=== PATIENT | female | born 1960 | race Caucasian/White ===

== ENCOUNTER 2019-09-22 08:16 | Outpatient (CLI) | payer OTHER, SELFPAY ==
--- NOTE | ~2019-09-22 | MM_ITS ---
EXAMINATION: MM screening [facility] BI w [facility] HISTORY: Screening TECHNIQUE: Craniocaudal and mediolateral oblique 3-D tomosynthesis images were obtained and synthetic 2-D images were generated. CAD analysis was submitted and interpreted. COMPARISON: Comparison to multiple prior studies sequentially, with oldest reviewed study dated 06/26. BREAST PARENCHYMAL COMPOSITION: The breasts are heterogeneously dense, which may obscure small masses . FINDINGS: There is no evidence of suspicious mass, calcification, or architectural distortion to sugg est malignancy in either breast. There has been no suspicious interval change. IMPRESSION: 1. No mammographic evidence of malignancy. 2. Recommend routine screening mammography in one year. BI-RADS Category 1: Negative Reviewed, dictated and finalized at location A.
== END 2019-09-22 08:17 | disposition home or self-care (01) ==
PROVIDERS: PCP Family Medicine; Visit Provider Family Medicine
DX: Z12.31 Encounter for screening mammogram for malignant neoplasm of breast (principal)
CPT/HCPCS: 77063; 77067

== ENCOUNTER → 2020-05-27 16:11 | Emergency (ER) | payer OTHER, SELFPAY | END | disposition left against medical advice (07) | LOC: EXPGLEN 16:14 | PROVIDERS: Emergency Provider Nurse Practitioner Family; PCP Family Medicine | DX: Z53.21 Procedure and treatment not carried out due to patient leaving prior to being seen by health care provider (principal) | CPT/HCPCS: 99199 ==

== ENCOUNTER 2020-05-27 16:37 | Emergency (ER) | payer OTHER, SELFPAY ==
[2020-05-27] VITALS (7 sets, daily range): BP systolic 134–145; BP diastolic 71–78; PULSE 69–87; RESP 14–18; TEMP 37; O2SAT 97–100
--- NOTE | ~2020-05-27 | XR_ITS ---
XR chest 1V portable DATE: 05/27/2020 19:22 INDICATION: Cough. Covid-positive. TECHNIQUE: Portable upright AP chest on 05/27/2020 at 1911 hours COMPARISON: 02/28/2007 portable AP chest FINDINGS: There is asymmetric prominence over the right hilar area; right hilar or mediastinal mass i s not excluded. Consider CT thorax examination with IV contrast material when clinically appropriate. Mild patchy infiltrate or atelectasis is suggested in the mid and to a greater extent lower lung zone s. No pleural effusion or pulmonary vascular congestion or pneumothorax is evident. Heart size is likely within normal range considering magnification associated with AP projection. IMPRESSION: Asymmetric prominence overlying the right hilar area; consider CT thorax with IV contrast material for further evaluation. Mild patchy infiltrate or atelectasis in the mid and to a greater extent lower lung zones Reviewed, dictated and finalized at location A. IMPRESSION: Asymmetric prominence overlying the right hilar area; consider CT t horax with IV contrast material for further evaluation. Mild patchy infiltrate or atelectasis in the mid and to a greater extent lower lung zones
--- NOTE | ~2020-05-27 | CT_ITS ---
EXAMINATION: CTA chest PE protocol DATE: 05/27/2020 22:28 INDICATION: Shortness of breath, chest pain TECHNIQUE: Computed tomography angiography (CTA) of the chest was performed with 100 mL Omnipaque-350 intravenous contrast timed to evaluate the pulmonary arteries. Coronal maximum intensity projection 3D-reconstructions were created by the technologist. Automated exposure control and iterative reconst ruction technique were employed. Exam dose: 296.79 mGy-cm total exam DLP. COMPARISON: None. FINDINGS: There is diagnostic contrast enhancement of the pulmonary arteries and no evidence of pulmo nary embolism. Mild cardiac megaly. No pericardial or pleural effusion. There is mild bilateral hilar and mediastinal likely reactive lymphadenopathy. There is patchy groundglass infiltrates involving the anterior segment of the left upper lobe, anteri or and to a greater extent lateral aspect of the right upper lobe and patchy lingular and right great er than left lower lobe infiltrates. Status post cholecystectomy. Hepatic steatosis. Normal morphology of the adrenal glands. Diffuse idiopathic skeletal hyperostosis of the thoracic spine. 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 No suspicious osteolytic or osteoblastic lesions are noted. IMPRESSION: Patchy bilateral upper and lower lobe pulmonary infiltrates and mild reactive bilateral hilar or mediastinal lymphadenopathy No evidence of pulmonary embolism Reviewed, dictated and finalized at Location A. Reviewed, dictated and finalized at location A. IMPRESSION: Patchy bilateral upper and lower lobe pulmonary infiltrates and mi ld reactive bilateral hilar or mediastinal lymphadenopathy No evidence of pulmonary embolism
--- NOTE | 2020-05-27 17:09 | ECG_ITS ---
Measurements Intervals [place] Rate: 77 P: 54 VA: 156 QRS: -22 QRSD: 98 T: 29 QT: 366 QTc: 414 Interpretive Statements SINUS RHYTHM BORDERLINE R WAVE PROGRESSION, ANTERIOR LEADS BASELINE ARTIFACT- V5 BORDERLINE ECG Electronically Signed On 05-27-2020 17:32:31 CDT by Luis Kelley D.O.
--- NOTE | 2020-05-27 18:41 | PC.NURSE ---
sitting upright with normal posture; respirations and skin signs wnl. No acute distress.
[2020-05-27] MEDS: KETOROLAC 30 MG/ML VIAL (*BKC) IV PUSH (20:09)
[2020-05-27] MEDS: ALBUTEROL SULFATE (*SP) INHALER 2 PUFF INHALATION (20:09)
[2020-05-27] MEDS: BENZONATATE 100 MG CAPSULE 200 MG PO (20:27)
[2020-05-27 20:32] LABS: Hematocrit 40.4 % (37.0-47.0); Hemoglobin 13.5 g/dL (12.0-15.0); Mean Corpuscular HGB Conc 33.4 g/dl (32-36); Mean Corpuscular Hemoglobin 29.7 pg (26-34); Mean Platelet Volume 10.1 fl (7.4-10.4); Platelet Count Result 254 k/mm3 (150-375); Red Blood Count 4.54 M/mm3 (4.2-5.4); Red Cell Distribution Width 11.9 % (11.5-14.5); White Blood Count 4.6 K/mm3 (4.5-10.0)
[2020-05-27 20:39] LABS: Lactic Acid Reflex 0.8 mmol/L (0.7-2.1)
[2020-05-27 20:44] LABS: Alanine Aminotransferase 66 U/L (4-35); Albumin Level 4.7 g/dL (3.5-5.1); Alkaline Phosphatase 93 U/L (38-126); Anion Gap 8 mmol/L (8-16); Aspartate Amino Transferase 47 U/L (14-36); Bilirubin,Total 0.5 mg/dL (0.2-1.3); Blood Urea Nitrogen 23 mg/dL (7-17); Calcium 9.1 mg/dL (8.4-10.2); Carbon Dioxide 29 mmol/L (22-30); Chloride 103 mmol/L (98-107); Estimated CRCL calculation 85 ml/min; Estimated Glomerular Filt Rate > 60; Glucose 102 mg/dL (65-105); Potassium 4.1 mmol/L (3.4-5.0); Sodium 140 mmol/L (137-145)
[2020-05-27 20:54] LABS: Eosinophils Absolute Manual 0.04 K/mm3 (0.02-0.5); Eosinophils Percent Manual 1 % (0-4); Monocytes Absolute Manual 0.18 K/mm3 (0.1-0.90); Monocytes Percent Manual 4 % (3-9); Neutrophils Percent Manual 47 % (46-73); Total Cells Counted 100
[2020-05-27 20:55] LABS: Platelet Estimate Adequate (Adequate)
[2020-05-27 20:57] LABS: Troponin I < 0.012 ng/mL (0.000-0.034)
--- NOTE | 2020-05-27 21:47 | PC.NURSE ---
Spoke to on phone and gave update per pts permission.
--- NOTE | 2020-05-27 23:46 | ED.GENADULT ---
HPI - General Adult General Chief complaint: Unspecified Stated complaint: covid + Time Seen by Provider: 05/27/20 19:16 History of Present Illness HPI narrative: Patient is a 59-year-old female who presents to emergency department with chief complaint of cough. Patient reports that she has COVID-19 that she contracted right after getting her first Covid vaccine. Patient states that she has been coughing having generalized malaise and body aches. Patient states that she talk to her primary care physician who recommended that she come to the emergency department for a chest x-ray to evaluate for possible Covid pneumonia. Patient reports symptoms are not improved by anything where they worsened by anything. Related Data Allergies Allergy/AdvReac Type Severity Reaction Status Date / Time No Known Allergies Allergy Verified 03/11/20 13:45 Review of Systems Review of Systems: Narrative: A 10 system review of systems was completed on the patient and is negative except for what is stated in the HPI. Nursing and ancillary documentation was reviewed. PMF Family History Family History Sibling Family history of hepatitis Family history of lymphoma Father Hypertension Cerebrovascular accident Family history of Alzheimer's disease Mother Hypertension Family history of Alzheimer's disease Social History Social History Smoking status: Never smoker Exam Narrative: Exam Narrative: GENERAL: Well-appearing, well-nourished, and in no acute distress. HEAD: Normocephalic, atraumatic. EYES: PERRLA and EOMI. ENT: Nares clear, no rhinorrhea or epistaxis. Mucous membranes moist. NECK: Supple. CHEST: Clear to auscultation. No respiratory distress. HEART: Regular rate and rhythm. No murmur heard. Normal peripheral pulses. ABDOMEN: Soft, nontender, nondistended, normal active bowel sounds. EXTREMITIES: Normal range of motion. No edema. SKIN: Warm, dry, no rash. NEURO: No focal deficits. Alert and oriented x3. PSYCH: Normal mood and affect. Course Vital Signs Vital signs: Vital Signs Temperature 37.0 C 05/27/20 17:04 Pulse Rate 79 05/27/20 17:04 Respiratory Rate 16 05/27/20 17:04 Blood Pressure 145/75 H 05/27/20 17:04 Pulse Oximetry 100 05/27/20 17:04 Temperature 37.0 C 05/27/20 17:04 Pulse Rate 81 05/27/20 22:48 Respiratory Rate 17 05/27/20 22:48 Blood Pressure 144/71 H 05/27/20 22:48 Pulse Oximetry 97 05/27/20 22:48 Medical Decision Making Vital Signs Vital Signs: Vital Signs Temperature 37.0 C 05/27/20 17:04 Pulse Rate 79 05/27/20 17:04 Respiratory Rate 16 05/27/20 17:04 Blood Pressure 145/75 H 05/27/20 17:04 Pulse Oximetry 100 05/27/20 17:04 Temperature 37.0 C 05/27/20 17:04 Pulse Rate 81 05/27/20 22:48 Respiratory Rate 17 05/27/20 22:48 Blood Pressure 144/71 H 05/27/20 22:48 Pulse Oximetry 97 05/27/20 22:48 Lab Data Result diagrams: 05/27/20 20:09 05/27/20 20:09 Labs: Lab Results 05/27/20 05/27/20 05/27/20 Range/Units 20:09 20:09 20:09 WBC 4.6 (4.5-10.0) K/mm3 RBC 4.54 (4.2-5.4) M/mm3 Hgb 13.5 (12.0-15.0) g/dL Hct 40.4 (37.0-47.0) % MCV 89.0 (80-100) fl MCH 29.7 (26-34) pg MCHC 33.4 (32-36) g/dl RDW 11.9 (11.5-14.5) % Plt Count 254 (150-375) k/mm3 MPV 10.1 (7.4-10.4) fl Immature Gran % (Auto) Not Reportable Neut % (Auto) Not Reportable Lymph % (Auto) Not Reportable [place] % (Auto) Not Reportable Eos % (Auto) Not Reportable Baso % (Auto) Not Reportable Lymph # (Auto) Not Reportable [place] # (Auto) Not Reportable Eos # (Auto) Not Reportable Baso # (Auto) Not Reportable Abs Immat Gran (auto) Not Reportable Absolute Neuts (auto) Not Reportable Absolute Nucleated R
== END 2020-05-28 | disposition home or self-care (01) ==
PROVIDERS: Emergency Provider Emergency Medicine; PCP Family Medicine
DX: U07.1 COVID-19 (principal); J12.82 Pneumonia due to coronavirus disease 2019; R94.31 Abnormal electrocardiogram [ECG] [EKG]
CPT/HCPCS: 36415; 71045; 71275; 80053; 83605; 84484; 85025; 93005; 94640; 96374; 99284; A9270; J1885; Q9967

== ENCOUNTER 2020-09-13 13:35 | Outpatient (CLI) | payer OTHER, SELFPAY ==
--- NOTE | ~2020-09-13 | XR_ITS ---
EXAMINATION: XR abdomen/kub 1V DATE: 09/13/2020 14:07 INDICATION: Left flank pain. TECHNIQUE: A supine view of the abdomen on 2 radiographs was obtained. COMPARISON: CT abdomen and pelvis 05/31/2016 FINDINGS: There are no dilated loops of bowel. Surgical clips in the right upper quadrant are likely from cholecystectomy. There are two 2 mm stones in left kidney. There is a phlebolith in right pelvis . There is a 2 mm calcification in left pelvis. IMPRESSION: 1. 2 mm calcification in left pelvis, which may be a phlebolith or distal ureteral stone. 2. Two 2 mm left kidney stones. Reviewed, dictated and finalized at location A. IMPRESSION: 1. 2 mm calcification in left pelvis, which may be a phlebolith or distal urete ral stone. 2. Two 2 mm left kidney stones.
== END 2020-09-13 13:36 | disposition home or self-care (01) ==
PROVIDERS: PCP Family Medicine; Visit Provider Family Medicine
DX: R10.9 Unspecified abdominal pain (principal); N20.0 Calculus of kidney
CPT/HCPCS: 74018

== ENCOUNTER 2021-04-27 13:29 | Outpatient (CLI) | payer OTHER, SELFPAY ==
--- NOTE | ~2021-04-27 | MM_ITS ---
EXAMINATION: MM screening [facility] BI w [facility] HISTORY: Screening mammogram TECHNIQUE: Craniocaudal and mediolateral oblique 3-D tomosynthesis images were obtained and synthetic 2-D images were generated. CAD analysis was submitted and interpreted. COMPARISON: 09/22/2019, 07/24/2018, 07/16/2017 BREAST PARENCHYMAL COMPOSITION: There are scattered areas of fibroglandular density. FINDINGS: There is no suspicious mass, calcification, or architectural distortion to suggest malignan cy in either breast. There has been no suspicious interval change. IMPRESSION: 1. No mammographic evidence of malignancy. 2. Recommend routine screening mammography in one year. BI-RADS Category 1: Negative Reviewed, dictated and finalized at location A.
== END 2021-04-27 13:30 | disposition home or self-care (01) ==
LOC: ANHIMG 13:31
PROVIDERS: PCP Family Medicine; Visit Provider Family Medicine
DX: Z12.31 Encounter for screening mammogram for malignant neoplasm of breast (principal)
CPT/HCPCS: 77063; 77067

== ENCOUNTER → 2022-01-31 10:16 | Outpatient (CLI) | payer OTHER, SELFPAY ==
--- NOTE | ~2022-01-31 | XR_ITS ---
EXAMINATION: XR chest 2V DATE: 01/31/2022 10:39 INDICATION: Cough for 6 weeks. TECHNIQUE: Frontal and lateral views of the chest were obtained. COMPARISON: Chest single view 05/27/2020, chest CT 05/27/2020 FINDINGS: The chest demonstrates clear lungs without pneumonia, pleural effusion, or pneumothorax. Th e heart size is normal. IMPRESSION: 1. No acute cardiopulmonary disease. Reviewed, dictated and finalized at location A. LINE ENGINEER
== END ==
PROVIDERS: PCP Nurse Practitioner; Visit Provider Nurse Practitioner
DX: R05.9 Cough, unspecified (principal)
CPT/HCPCS: 71046

== ENCOUNTER 2022-10-11 10:46 | Outpatient (CLI) | payer OTHER, SELFPAY ==
--- NOTE | ~2022-10-11 | US_ITS ---
Limited Abdominal Sonogram: Real-time sonographic imaging of the right upper quadrant was performed. Clinical History: Abnormal serum enzyme levels Findings: The liver appears echogenic, with no evidence of mass lesion or bile duct dilatation. Main portal vein demonstrates normal direction of flow. The gallbladder is well distended, and appears no rmal with no evidence of gallstone or wall thickening. The common bile duct measures 3 mm. The visua lized pancreas, aorta, and IVC are unremarkable. Impression: Diffuse fatty infiltration of the liver. Reviewed, dictated and finalized at location M. Impression: Diffuse fatty infiltration of the liver.
== END 2022-10-11 10:47 | disposition home or self-care (01) ==
LOC: ANHIMG 10:49
PROVIDERS: PCP Family Medicine; Visit Provider Family Medicine
DX: R74.8 Abnormal levels of other serum enzymes (principal)
CPT/HCPCS: 76705

== ENCOUNTER 2023-06-27 16:45 | Outpatient (CLI) | payer OTHER, SELFPAY ==
--- NOTE | ~2023-06-27 | MM_ITS ---
EXAMINATION: MM screening [facility] BI w [facility] HISTORY: Screening mammogram TECHNIQUE: Craniocaudal and mediolateral oblique 3-D tomosynthesis images were obtained and synthetic 2-D images were generated. CAD analysis was submitted and interpreted. COMPARISON: 04/27/2021, 09/22/2019 bilateral screening mammogram examinations BREAST PARENCHYMAL COMPOSITION: There are scattered areas of fibroglandular density. FINDINGS: Biopsy marker on the right; history of prior benign right breast biopsy. There is asymmetric increased density in the left subareolar area. Approximately 4.7 x 6.5 low density circumscribed mass is noted in the posterior central left breast on screening MLO view (MLO [facility] image 41/79). Approximately 5.4 x 7.4 mm circumscribed opacity is noted posteriorly in the inner left breast (crani ocaudal [facility] image 27/74). Diagnostic left mammogram and left breast ultrasound examination are recommended. Otherwise there is no evidence of suspicious mass, calcification, or architectural distortion to sugg est malignancy in either breast. There has been no suspicious interval change. IMPRESSION: 1. Left mammographic asymmetry and masses 2. Diagnostic left mammogram and left breast ultrasound examination are recommended. BI-RADS Category 0: Incomplete: Needs additional imaging evaluation. Reviewed, dictated and finalized at location B. IMPRESSION: 1. Left mammographic asymmetry and masses 2. Diagnostic left mammogram and left breast ultrasound examination are recomme nded. BI-RADS Category 0: Incomplete: Needs additional imaging evaluation.
== END 2023-06-27 16:46 | disposition home or self-care (01) ==
LOC: ANHIMG 16:47
PROVIDERS: PCP Family Medicine; Visit Provider Family Medicine
DX: Z12.31 Encounter for screening mammogram for malignant neoplasm of breast (principal); N64.89 Other specified disorders of breast
CPT/HCPCS: 77063; 77067

== ENCOUNTER 2023-07-12 12:03 | Outpatient (CLI) | payer OTHER, SELFPAY | END 2023-07-12 12:04 | LOC: GOSHIMG 12:04 | PROVIDERS: PCP Family Medicine; Visit Provider Family Medicine | DX: G89.29 Other chronic pain (principal); M79.672 Pain in left foot | CPT/HCPCS: 73630 ==

== ENCOUNTER 2023-07-13 10:29 | Outpatient (CLI) | payer OTHER, SELFPAY ==
--- NOTE | ~2023-07-13 | MMUS_ITS ---
EXAMINATION: MM diagnostic j[facility] LT w [facility], US breast LT complete HISTORY: Follow-up left breast asymmetries TECHNIQUE: Additional 3-D tomosynthesis images of the left breast were performed and synthetic 2-D im ages were generated. CAD analysis was submitted and interpreted. High resolution complete left breast ultrasound was performed. COMPARISON: Comparison to multiple prior studies sequentially, with oldest reviewed study dated 06/02. BREAST PARENCHYMAL COMPOSITION: Not dense: There are scattered areas of fibroglandular density. FINDINGS: MAMMOGRAPHIC FINDINGS: There is a small radiolucent circumscribed mass at approximately the 9:00 position of the left breast . There are no other discrete masses, architectural distortion or suspicious calcifications seen. ULTRASOUND: Complete US of all 4 quadrants of the left breast and retroareolar region was reviewed. At 9:00, 6 cm from the nipple there is a 7 mm cyst corresponding to the mammographic abnormality. At 12:00, 2 cm f rom the nipple, there is a small 3 mm cyst. No suspicious masses to suggest malignancy. IMPRESSION: 1. No evidence for malignancy in the left breast. Benign findings. 2. Routine yearly screening mammogram and regular clinical breast examination are recommended. BI-RADS Category 2: Benign finding(s). Reviewed, dictated and finalized at location B. IMPRESSION: 1. No evidence for malignancy in the left breast. Benign findings. 2. Routine yearly screening mammogram and regular clinical breast examination a re recommended. BI-RADS Category 2: Benign finding(s).
== END 2023-07-13 10:30 | disposition home or self-care (01) ==
LOC: ANHIMG 10:34
PROVIDERS: PCP Family Medicine; Visit Provider Family Medicine
DX: N63.20 Unspecified lump in the left breast, unspecified quadrant (principal); R92.8 Other abnormal and inconclusive findings on diagnostic imaging of breast
CPT/HCPCS: 76641; 77061; 77065; G0279

== ENCOUNTER 2023-07-20 07:31 | Outpatient (CLI) | payer OTHER, SELFPAY ==
--- NOTE | ~2023-07-20 | CT_ITS ---
CT of the Pelvis: Indication: Pain, prior left groin lipoma resection Technique: 2.5 mm axial scans were obtained through the pelvis following intravenous administration of 100 cc of Omnipaque 350. Dose reduction technique was used on this scan by utilizing automated exp osure control and iterative reconstruction technique. The dose-length product (DLP) was 423.33 mGy-cm . Findings: Urinary bladder unremarkable. No pelvic mass seen. No ascites. No lymphadenopathy identifie d. Visualized musculature unremarkable. No inguinal lymphadenopathy or mass seen. No peripheral soft tis baldomero mass or fluid collection seen. No fracture or dislocation seen. Impression: No significant abnormalities seen. Reviewed, dictated and finalized at location . Impression: No significant abnormalities seen.
== END 2023-07-20 07:32 | disposition home or self-care (01) ==
LOC: ANHIMG 07:33
PROVIDERS: PCP Family Medicine; Visit Provider Family Medicine
DX: R19.00 Intra-abdominal and pelvic swelling, mass and lump, unspecified site (principal); Z87.898 Personal history of other specified conditions
CPT/HCPCS: 72193; Q9967

== ENCOUNTER 2023-10-01 10:39 | Outpatient (CLI) | payer OTHER, SELFPAY ==
--- NOTE | ~2023-10-01 | XR_ITS ---
XR knee LT 3V Ordering provider: Chely Salas, QUARTER INSPECTOR-C History: . M25.562 - Pain in left knee . Comparison: None. FINDINGS: BONES: No acute fracture or dislocation. JOINT SPACES: Normal. SOFT TISSUES: Normal. IMPRESSION: No acute osseous abnormality left knee. Reviewed, dictated and finalized at location A.
== END 2023-10-01 10:40 ==
LOC: GOSHIMG 10:40
PROVIDERS: PCP Family Medicine; Visit Provider Nurse Practitioner
DX: M25.562 Pain in left knee (principal)
CPT/HCPCS: 73562

== ENCOUNTER 2024-07-04 09:17 | Outpatient (CLI) | payer OTHER, SELFPAY ==
--- NOTE | ~2024-07-04 | MR_ITS ---
MRI of the left knee Clinical history: Pain Technique: Coronal proton density and proton density-weighted images, sagittal proton-density and T2 fat-sat images, and axial proton-density fat-saturated images were acquired. Findings: Anterior and posterior cruciate ligaments are intact. Medial collateral ligament and the la teral collateral ligament complex are intact. Popliteus tendon is intact. There is complex tearing of the posterior horn and body of the medial meniscus. No lateral meniscal t ear identified. There is mild to moderate chondromalacia patella, worst along the lateral patellar facet. There is mi ld chondromalacia the femoral trochlea. There is moderate chondral thinning at the medial and lateral joint lines. Extensor mechanism is intact. No significant joint effusion present. Tiny Dunne's cyst present. Impression: Extensive complex tearing of the posterior horn and body of the medial meniscus. Mild degenerative changes, as above. Tiny Dunne's cyst. Reviewed, dictated and finalized at [facility]. Impression: Extensive complex tearing of the posterior horn and body of the medial meniscus . Mild degenerative changes, as above. Tiny Dunne's cyst.
== END 2024-07-04 09:18 | disposition home or self-care (01) ==
PROVIDERS: PCP Family Medicine; Visit Provider Family Medicine
DX: M71.22 Synovial cyst of popliteal space [Baker], left knee (principal)
CPT/HCPCS: 73721

== ENCOUNTER 2024-09-01 08:58 | Outpatient (CLI) | payer OTHER, SELFPAY ==
--- OUTSIDE RECORDS SUMMARY | 2024-09-01 09:04 | XMS_ITS | Clinical Summary ---
Author Organization [facility] [place] Address [address] [place] [address] Phone Care Team Providers Care Payroll Secretary Name Role Phone Peewee Hernandez MD Primary Care Provider [phone] Allergies No known active allergies Medications escitalopram oxalate (LEXAPRO) 10 mg tablet Take 20 mg by mouth daily . Active Active Problems Patient Care Coordination No te Formatting of this note migh t be different from the original. Primary Care: Peewee Hernandez MD Referring Provider: Peewee Hernandez MD [address] [place] [address] Other: Other: Dr Naomi Bray Problem Noted Date Diagnosed Date Diffuse cystic mastopathy 01/28/2014 Depression 07/03/2013 Resolved Problems Problem Noted Date Diagnosed Date Resolved Date Lump of breast, right 07/02/20132013 Family History Medical History Relation Name Comments Breast Cancer Neg Hx Ovarian Cancer Neg Hx Uterine Cancer Neg Hx Social History Tobacco Use Types Packs/Day Years Used Date Smoking Tobacco: Never Smokeless Tobacco: Never Tobacco Cessation:Counseling Given: No Alcohol Use Standard Drinks/Week Comments Yes 0 (1 standard drink = 0.6 oz pur e alcohol) moderate Comments No Sex and Gender Information Value Date Recorded Sex Assigned at Not on file Legal Sex Female 8:55 AM CDT Gender Identity Not on file Sexual Orientation Not on file Occupation Industry Job Start Date Job End Date Not on file Not on file Not on file Not on file Last Filed Vital Signs Vital Sign Reading Time Taken Comments Blood Pressure 156/86 07/20/2014 2:49 PM CDT Pulse 63 07/20/2014 2:49 PM CDT Temperature - - Respiratory Rate - - Oxygen Saturation - - Inhaled Oxygen Concentration - - Weight 78.5 kg (173 lb) 07/20/2014 2:49 PM CDT Height 167.6 cm (5' 6) 07/20/2014 2:49 PM CDT Body Mass Index 27.92 07/20/2014 2:49 PM CDT Plan of Treatment Health Maintenance Due Date Last Done Comments DTAP/TDAP/TD VACCINES (1 - Tdap) 1981 HPV/Cotest (21-29) 11/13/1983 CERVICAL CANCER SCREENING 1992 HPV/Cotest (30-65) 1992 PAP SMEAR 1992 COLORECTAL SCREENING 11/13/2007 Colorectal Cancer Screening 11/13/2007 FIT-DNA Q 3 years 11/13/2007 FIT/FOBT Q 1 year 11/13/2007 Flex Sig/CT Colonography Q 5 years 11/13/2007 ZOSTER VACCINE (1 of 2) 2012 BREAST CANCER SCREENING 07/21/2015 07/21/19 15, 01/28/2014, 07/03/2013, Additional history exists INFLUENZA VACCINE (#1) 2024 RSV VACCINE (60+ or ) (1 - 1-dose 75+ series) 2037 Procedures Procedure Name Priority Date/Time Associated Diagnosis Comments MAMMO DIAGNOSTIC BILATERAL W OR WO CAD Routine 07/20/2014 3:26 PM CDT Lump of breast, right Diffuse cystic mastopathy, unspecified laterality from Last 3 Months or Most Recently Relevant to Health Maintenance Results * MAMMO DIGITAL DIAG BILAT (07/20/2014 3:26 PM CDT) Anatomical Region Laterality Modality Breast Bilateral Mammography 07/20/2014 3:25 PM CDT Impressions 07/22/2014 4:25 PM CDT IMPRESSION: Today's mammogram and ultrasound demonstrate a stable right breast mass. Annual mammography is recommended. Dictated from Triston Perez Narrative 07/22/2014 4:25 PM CDT DIAGNOSTIC MAMMOGRAM BILATERAL WITH CAD AND LIMITED RIGHT BREAST ULTRASOUND. 07/20/14 HISTORY: Previous benign biopsy of the right breast. TECHNIQUE: Diagnostic mammograms of both breasts were performed using full-field digital mammography. Comparison is made with prior studies dated January 2014, June 2013 and May 2009 BREAST COMPOSITION: Scattered fibroglandular densities. FINDINGS: A right breast mass is identified. A tissue marker clip is identified anterior to the mass. This is stable. No new dominant masses, areas of asymmetry or suspicious clustered calcifications are identified within either breast. CAD was utilized. A right breast ultrasound was performed. In the lower-inner quadrant of the right breast a hypoechoic mass with anechoic spaces is identified which measures 1.1 cm in size. This is stable when compared with the previous ultrasound from January 2014. Overall assessment: BI-RADS category 2. Benign findings. Procedure Note Micki Flower MD - 07/22/2014 DIAGNOSTIC MAMMOGRAM BILATERAL WITH CAD AND LIMITED RIGHT BREAST ULTRASOUND. 07/20/14 HISTORY: Previous benign biopsy of the right breast. TECHNIQUE: Diagnostic mammograms of both breasts were performed using full-field digital mammography. Comparison is made with prior studies dated January 2014, June 2013 and May 2009 BREAST COMPOSITION: Scattered fibroglandular densities. FINDINGS: A right breast mass is identified. A tissue marker clip is identified anterior to the mass. This is stable. No new dominant masses, areas of asymmetry or suspicious clustered calcifications are identified within either breast. CAD was utilized. A right breast ultrasound was performed. In the lower-inner quadrant of the right breast a hypoechoic mass with anechoic spaces is identified which measures 1.1 cm in size. This is stable when compared with the previous ultrasound from January 2014. Overall assessment: BI-RADS category 2. Benign findings. IMPRESSION IMPRESSION: Today's mammogram and ultrasound demonstrate a stable right breast mass. Annual mammography is recommended. Dictated from Triston Perez Naomi Bray MD MAMMO ORDERABLES Final Result from Last 3 Months or Most Recently Relevant to Health Maintenance [place] [address] [place] [id number] Care Teams Payroll Secretary Relationship Specialty Start Date End Date Peewee Hernandez MD [address] [place] [id number] PCP - General Family Practice 07/03/13
--- OUTSIDE RECORDS SUMMARY | 2024-09-01 09:04 | XMS_ITS | Referral Summary ---
Author Organization [facility] Address [address] [place] [address] Care Team Providers Care Radio Repair Teacher Name Role Phone Monique Chatterjee DO Primary Care Provider [phone]- [phone] Nisha Palomares OD Unavailable [phone] Edvin Dao MD Unavailable [phone] Mark Clement MD Unavailable [phone] Encounters Date Type Department Care Team Description 08/22/2024 Orders Only [facility] Orthopedic and Sports Medicine [address] [place] [phone] Hair Gutierrez MD S/P left knee arthroscopy (Primary Dx) 08/22/2024 Telephone [facility] Medical [facility] Orthopedic and Sports Medicine [address] [place] [phone] Hair Gutierrez MD Surgical Clearance 08/22/2024 11:00 AM CDT Office Visit [facility] Orthopedic and Sports Medicine [address] [place] [phone] Hair Gutierrez MD Complex tear of medial meniscus of left knee as current injury, initial encounter (Primary Dx) 08/21/2024 2:10 PM CDT Ancillary Procedure [facility] Imaging at [address] [phone] 08/21/2024 2:05 PM CDT Ancillary Procedure [facility] Imaging at [address] [phone] Acute pain of left knee 08/21/2024 2:00 PM CDT Office Visit [facility] Orthopedic and Sports Medicine [address] [place] [phone] Kami Terry PA Acute medial meniscus tear of left knee, initial encounter (Primary Dx) 07/04/2024 Ancillary Procedure [facility] Outside Films from Last 3 Months Allergies No known active allergies Medications escitalopram (LEXAPRO) 20 mg tablet Take 1 tablet (20 mg total) by mouth daily Active lisinopriL (PRINIVIL,ZESTR [place]) 10 mg tablet Take 1 tablet (10 mg total) by mouth daily 08/07/2022 Active rosuvastatin (CRESTOR) 5 mg tablet Take 1 tablet (5 mg total) by mouth daily 08/07/2022 Active naproxen (NAPROSYN) 500 mg tablet Take 1 tablet (500 mg total) by mouth 2 (two) times a day 08/17/2024 Active ezetimibe (ZETIA) 10 mg tablet Take 1 tablet (10 mg total) by mouth daily 06/01/2024 Active fenofibrate (TRICOR) 54 mg tablet Take 1 tablet (54 mg total) by mouth daily 07/10/2024 Active icosapent ethyL (VASCEPA) 1 gram capsule Take 2 capsules (2 g total) by mouth 2 (two) times a day 07/15/2024 Active Active Problems Problem Noted Date Diagnosed Date Complex tear of medial menis cus of left knee as current injury 08/22/2024 High myopia, both eyes 10/30/2022 Cataracts, both eyes 10/30/2022 Epiretinal membrane (ERM) of right eye 3 Social History Tobacco Use Types Packs/Day Years Used Date Smoking Tobacco: Never AUDIT-C Answer Date Recorded Q1: How often do you have a drink containing alc ohol? 2-4 times a month 08/21/2024 Average Number of Drinks Not on file 025 Frequency of Binge Drinking Not on file 08/12 Comments Unknown Sex and Gender Information Value Date Recorded Sex Assigned at Not on file Legal Sex Female 9:06 AM CDT Gender Identity Not on file Sexual Orientation Not on file Last Filed Vital Signs Vital Sign Reading Time Taken Comments Blood Pressure 122/68 08/22/2024 11:23 AM CDT Pulse 70 08/22/2024 11:23 AM CDT Temperature - - Respiratory Rate - - Oxygen Saturation - - Inhaled Oxygen Concentration - - Weight 80.3 kg (177 lb) 08/22/2024 11:23 AM CDT Height 170.2 cm (5' 7) 08/22/2024 11:23 AM CDT Body Mass Index 27.72 08/22/2024 11:23 AM CDT Plan of Treatment Upcoming Encounters Date Type Department Care Team (Latest Contact Info) Description 09/08/2024 7:45 AM CDT Hospital Encounter [facility] Operating Room [address] [place] [address] Hair Gutierrez MD [address] [place] [address] DR ALEXANDRE Guevara [facility] [address] [place] [address] 09/08/2024 7:45 AM CDT - 09/08/2024 9:00 AM CDT Surgery [facility] Operating Room [address] [place] [address] Hair Gutierrez MD [address] [place] [address] DR ALEXANDRE Guevara [facility] [address] [place] [address] Left Knee Arthroscopy with Medial Meniscectomy including any meniscal shavings including debridement/shaving articular cartilage- Arthroscopy Equipment, Ezy Wrap Scheduled Procedures Name Priority Associated Diagnoses Date/Ti me ARTHROSCOPY KNEE Complex tear of medial meniscus of left knee as current injury, initial encounter 09/08/2024 7:45 AM CDT Procedures Procedure Name Priority Date/Time Associated Diagnosis Comments XR KNEE LEFT 4 OR MORE VIEWS Schedule Routine, Read Routine (OP Routine) 08/21/2024 2:10 PM CDT Acute medial meniscus tear of left knee, initial encounter XR PELVIS 1 OR 2 VIEWS Schedule Routine, Read Routine (OP Routine) 08/21/2024 2:10 PM CDT Acute pain of left knee MRI TRANSFER OF OUTSIDE FILMS Routine 07/04/2024 12:00 AM CDT from Last 3 Months Results * XR Knee Left 4 or More Views (08/21/2024 2:10 PM CDT) Anatomical Region Laterality Modality Lower Extremities, Knee Left Digital Radiography Narrative 08/21/2024 4:58 PM CDT Radiographs of the left knee reviewed interpreted. No acute fractures or destructive osseous lesions. Mild degenerative changes present of the patellofemoral compartment. Kami ZAVALETA IMG XR PROCEDURES Edite d Result - Final * XR Pelvis 1 or 2 Views (08/21/2024 2:10 PM CDT) Anatomical Region Laterality Modality Body, Pelvis N/A Digital Radiogra phy Narrative 08/22/2024 7:02 AM CDT Radiographs of the pelvis reviewed interpreted. No acute fractures or destructive osseous lesions. Mild degenerative changes of the femoral acetabular joints and visualized portions of the lower lumbar spine Kami ZAVALETA IMG XR PROCEDURES Final Result * MRI Outside Reference (07/04/2024 12:00 AM CDT) Narrative [facility] - 07/23/2024 9:32 AM CDT This order has been auto-finalized and does not contain a result. Provider Transcribed Order IMG MRI PROCEDURES Fi nal Result [facility] from Last 3 Months Insurance [employer] [facility] HMO [facility] HMO Care Teams Radio Repair Teacher Relationship Specialty Start Date End Date Monique Chatterjee DO PCP - General Family Medicine 10/30/22 Nisha Palomares OD [address] [place] [address] Referring Physician Optometry 10/30/22 Edvin Dao MD [address] [facility] [address] [place] [address] Referring Physician Ophthalmology 10/30/22 Mark Clement MD [address] [place] [address] Consulting Physician Retina Ophthalmology 10/30/22
--- OUTSIDE RECORDS SUMMARY | 2024-09-01 09:04 | XMS_ITS | Clinical Summary ---
Author Organization [facility] Address [address] [place] [address] Care Team Providers Care Market Developer Name Role Phone Monique Chatterjee DO Primary Care Provider [phone] Nisha Palomares OD Unavailable [phone] Edvin Dao MD Unavailable [phone] Mark Clement MD Unavailable [phone] Allergies No known active allergies Medications escitalopram [...] Epiretinal membrane (ERM) of right eye 3 Encounters Date Type Department Care Team Description 08/22/2024 11:00 AM CDT Office Visit [facility] Orthopedic and Sports Medicine [address] [place] [phone] Hair Gutierrez MD Complex tear of medial meniscus of left knee as current injury, initial encounter (Primary Dx) 08/22/2024 Orders Only [facility] Orthopedic and Sports Medicine [address] [place] [phone] Hair Gutierrez MD S/P left knee arthroscopy (Primary Dx) 08/22/2024 Telephone [facility] Orthopedic and Sports Medicine [address] [place] [phone] Hair Gutierrez MD Surgical Clearance 08/21/2024 2:10 PM CDT Ancillary Procedure [facility] Medical [facility] Imaging at [address] [phone] 08/21/2024 2:05 PM CDT Ancillary Procedure [facility] Imaging at [address] [phone] Acute pain of left knee 08/21/2024 2:00 PM CDT Office Visit [facility] Orthopedic and Sports Medicine [address] [place] [phone] Kami Terry PA Acute medial meniscus tear of left knee, initial encounter (Primary Dx) 07/04/2024 Ancillary Procedure [facility] Outside Films from Last 3 Months Surgical History Surgery Date Site/Laterality Comments BREAST BIOPSY 07/03/2013 Right Medical History Medical History Date Comments High myopia, both eyes Cataracts, both eyes Epiretinal membrane (ERM) of right eye Family History Medical History Relation Name Comments Arthritis Father Family history of arthritis - (Added by TW Conv) Hypertension Father Family history of hypertension - (Added by TW Conv) Stroke Father Family history of cerebrovascular accident (CVA) - (Added by TW Conv) Arthritis Mother Family history of arthritis - (Added by TW Conv) Cancer Mother Family history of malignant neoplasm - (Added by TW Conv) Hypertension Mother Family history of hypertension - (Added by TW Conv) Stroke Mother Family history of cerebrovascular accident (CVA) - (Added by TW Conv) Cancer Sister Family history of malignant neoplasm - (Added by TW Conv) Relation Name Status Comments Father Mother Sister Social History Tobacco Use Types Packs/Day Years [...] on file Sexual Orientation Not on file Obstetrics History Last Filed Vital Signs Vital Sign Reading [...] Description 09/08/2024 7:45 AM CDT Hospital Encounter [facility] Operating Room [address] [place] [address] Hair Gutierrez MD [address] [place] [address] DR ALEXANDRE Guevara JENI [address] [place] [address] 09/08/2024 7:45 AM CDT - 09/08/2024 9:00 AM CDT Surgery [facility] Operating Room [address] [place] [address] Hair Gutierrez MD [address] [place] [address] DR ALEXANDRE Guevara [facility] [address] [place] [address] Left Knee Arthroscopy with Medial Meniscectomy including any meniscal shavings including debridement/shaving articular cartilage- Arthroscopy Equipment, Ezy Wrap Scheduled Procedures Name Priority Associated Diagnoses Date/Ti me ARTHROSCOPY KNEE Complex tear of medial meniscus of left knee as current injury, initial encounter 09/08/2024 7:45 AM CDT Health Maintenance Due Date Last Done Comments Breast Cancer Screening-Mammogram 1962 Cervical Cancer Screening 1962 Colon Cancer Screening-Colonoscopy 1962 Depression Screening 1962 Hepatitis C Screening 1962 Hepatitis B Screening 1980 Regular Well Visit/Exam 18-64 1980 Zoster Vaccine (1 of 2) 2012 Covid-19 Vaccine ( season) 2023 11/21/2021, 12/28/2020, 06/24/2020, Additional history exists Influenza Vaccine (#1) 2024 , 12/13/2020, 11/28/2019, Additional history exists DTaP/Tdap/Td Vaccine (2 - Td or Tdap) 12/13/2030 12/13/2020 Pneumococcal vaccine <65 Aged Out No longer eligible based on patient's age to complete this topic Procedures Procedure Name Priority Date/Time Associated Diagnosis [...] Result [facility] from Last 3 Months Insurance [facility] Care Teams Market Developer Relationship Specialty Start Date End Date Monique Chatterjee DO PCP - General Family Medicine 10/30/22 Nisha Palomares OD [address] [place] [address] Referring Physician Optometry 10/30/22 Edvin Dao MD [address] [facility] [address] [place] [address] Referring Physician Ophthalmology 10/30/22 Mark Clement MD [address] [place] [address] Consulting Physician Retina Ophthalmology 10/30/22
[2024-09-01 13:43] LABS: Alanine Aminotransferase 49 U/L (6-35); Albumin Level 4.8 g/dL (3.5-5.1); Alkaline Phosphatase 57 U/L (38-126); Anion Gap 8 mmol/L (4-12); Aspartate Amino Transferase 55 U/L (14-36); Bilirubin,Total 0.5 mg/dL (0.2-1.3); Blood Urea Nitrogen 16 mg/dL (7-17); Calcium 9.9 mg/dL (8.4-10.2); Carbon Dioxide 27 mmol/L (22-30); Chloride 101 mmol/L (98-107); Estimated Glomerular Filt Rate > 60; Glucose 83 mg/dL (65-110); Hematocrit 38.4 % (37.0-47.0); Hemoglobin 12.3 g/dL (12.0-15.0); Mean Corpuscular HGB Conc 32.0 g/dl (32-36); Mean Corpuscular Hemoglobin 29.6 pg (26-34); Mean Corpuscular Volume 92.5 fl (80-100); Platelet Count Result 293 k/mm3 (150-375); Potassium 4.5 mmol/L (3.4-5.0); Red Blood Count 4.15 M/mm3 (4.2-5.4); Sodium 136 mmol/L (137-145); Total Protein 7.8 g/dL (6.3-8.2); White Blood Count 5.5 K/mm3 (4.5-10.0)
== END 2024-09-01 08:59 | disposition home or self-care (01) ==
LOC: ANHGOSHLAB 08:59
PROVIDERS: PCP Family Medicine; Visit Provider Family Medicine
DX: I10 Essential (primary) hypertension (principal); Z79.899 Other long term (current) drug therapy
CPT/HCPCS: 36415; 80053; 85027

== ENCOUNTER 2024-09-15 10:02 | Outpatient (CLI) | payer OTHER, SELFPAY ==
--- NOTE | ~2024-09-15 | US_ITS ---
Limited Abdominal Sonogram: Real-time sonographic imaging of the right upper quadrant was performed. Clinical History: Abnormal serum enzyme levels Findings: The liver appears echogenic with no evidence of mass lesion or bile duct dilatation. Main portal vein demonstrates normal direction of flow. The gallbladder is absent, compatible with prior c holecystectomy. The common bile duct measures 5 mm. The visualized pancreas, aorta, and IVC are unre markable. Impression: Diffuse fatty infiltration of liver. Status post cholecystectomy. Reviewed, dictated and finalized at location M. Impression: Diffuse fatty infiltration of liver. Status post cholecystectomy.
== END 2024-09-15 10:03 | disposition home or self-care (01) ==
PROVIDERS: PCP Family Medicine; Visit Provider Family Medicine
DX: K76.0 Fatty (change of) liver, not elsewhere classified (principal); Z90.49 Acquired absence of other specified parts of digestive tract; R74.8 Abnormal levels of other serum enzymes
CPT/HCPCS: 76705

== ENCOUNTER 2024-12-24 07:46 | Outpatient (CLI) | payer OTHER, SELFPAY ==
--- NOTE | ~2024-12-24 | MM_ITS ---
EXAMINATION: MM screening john BI w [facility] HISTORY: Screening TECHNIQUE: Craniocaudal and mediolateral oblique 3-D tomosynthesis images were obtained and synthetic 2-D images were generated. CAD analysis was submitted and interpreted. COMPARISON: Comparison to multiple prior studies sequentially, with oldest reviewed study dated 07/16/2017. BREAST PARENCHYMAL COMPOSITION: Not dense: There are scattered areas of fibroglandular density. FINDINGS: There is no evidence of suspicious mass, calcification, or architectural distortion to suggest malignancy in either breast. There has been no suspicious interval change. IMPRESSION: 1. No mammographic evidence of malignancy. 2. Recommend routine screening mammography in one year. BI-RADS Category 1: Negative Reviewed, dictated and finalized at location B. C TECHNICIAN
--- OUTSIDE RECORDS SUMMARY | 2024-12-24 07:52 | XMS_ITS | Clinical Summary ---
Author Organization [facility] Address [address] [place] [address] Phone Care Team Providers Care Paraffin Plant Operator Name Role Phone Peewee Hernandez MD Primary Care Provider [phone] Allergies No known active allergies Medications escitalopram oxalate (LEXAPRO) 10 mg tablet Take 20 mg by mouth daily . Active Active Problems Patient Care Coordination No te Formatting of this note migh t be different from the original. Primary Care: Peewee Hernandez MD Referring Provider: Peewee Hernandez MD [address] [place] [address] Other: Other: Dr Naomi Bray Problem Noted [...] Most Recently Relevant to Health Maintenance Insurance [facility] OPTIONS PPO [id number] Care Teams Paraffin Plant Operator Relationship Specialty Start Date End Date Peewee Hernandez MD [address] [place] [address] PCP - General Family Practice 07/03/13
--- OUTSIDE RECORDS SUMMARY | 2024-12-24 07:52 | XMS_ITS | Clinical Summary ---
Author Organization [facility] Address [address] [place] [address] Care Team Providers Care Hammer Smith Name Role Phone DickbereketMonique pineda Primary Care Provider [phone] Nisha Palomares OD Unavailable [phone] Edvin Dao MD Unavailable Mark Clement MD Unavailable [phone] Allergies No known active allergies Medications escitalopram (LEXAPRO) 10 mg tablet Take 1 tablet (10 mg total) by mouth daily Active lisinopriL (PRINIVIL,ZESTR [place]) 40 mg tablet Take 1 tablet (40 mg total) by mouth daily 08/07/2022 Active [...] 2 (two) times a day 07/15/2024 Active multivitamin with minerals tablet Take 1 tablet by mouth daily Active ascorbic acid (VITAMIN C) 500 mg tablet,chewable Take 1 tablet/chew tab (500 mg total) by mouth 2 (two) times a day 60 tablet/chew tab 09/08/2024 Active cholecalciferol (VITAMIN D-3) 2000 unit capsule Take 1 capsule (2,000 Units total) by mouth daily 30 capsule 09/08/2024 Active Active Problems Problem Noted Date Diagnosed Date S/P arthroscopy of knee 09/08/2024 Complex tear of medial menis cus of left knee as current injury 08/22/2024 High myopia, both eyes 10/30/2022 Cataracts, both eyes 10/30/2022 Epiretinal membrane (ERM) of right eye 3 Encounters Date Type Department Care Team Description 09/23/2024 9:15 AM CDT Office Visit [facility] Medical Group Orthopedic and Sports Medicine [address] [place] [phone] Kami Terry PA S/P medial meniscectomy of left knee (Primary Dx); S/P lateral meniscectomy of left knee from Last 3 Months Surgical History Surgery Date Site/Laterality Comments BREAST BIOPSY 07/03/2013 Right LIPOMA RESECTION Left groin SECTION CHOLECYSTECTOMY APPENDECTOMY Medical History Medical History Date Comments High myopia, both eyes Cataracts, both eyes Epiretinal membrane (ERM) of right eye PONV (postoperative nausea and vomiting) Hypertension Hyperlipidemia Kidney stone Family History Medical History Relation Name Comments [...] Smokeless Tobacco: Never Tobacco Cessation:Counseling Given: No AUDIT-C Answer Date Recorded Q1: How often do you have a drink containing alc ohol? Monthly or less 09/08/2024 Q2: How many drinks containi ng alcohol do you have on a typical day when you are drinking? 1 or 2 09/08/2024 Q3: How often do you have si x or more drinks on one occasion? Never 09/08/2024 Personal Safety Answer Date Recorded Have you ever been in or are you currently in a harmful physical or emotional relationship or is someone making you feel afraid or unsafe? Denies 09/08/2024 Comments No Sex and Gender Information Value Date Recorded Sex Assigned at Not on file Legal Sex Female 9:06 AM CDT Gender Identity Not on file Sexual Orientation Not on file Last Filed Vital Signs Vital Sign Reading Time Taken Comments Blood Pressure 168/76 09/23/2024 9:19 AM CDT Pulse 63 09/23/2024 9:19 AM CDT Temperature 36.3 C (97.3 F) 09/08/2024 10:10 AM CDT Respiratory Rate 18 09/08/2024 10:10 AM CDT Oxygen Saturation 99% 09/08/2024 10:10 AM CDT Inhaled Oxygen Concentration - - Weight 80.3 kg (177 lb) 09/23/2024 9:19 AM CDT Height 167.6 cm (5' 6) 09/23/2024 9:19 AM CDT Body Mass Index 28.57 09/23/2024 9:19 AM CDT Plan of Treatment Health Maintenance Due Date Last Done Comments Breast Cancer Screening-Mammogram 1962 Cervical Cancer Screening 1962 Colon Cancer Screening-Colonoscopy 1962 Depression Screening 1962 Hepatitis C Screening 1962 Hepatitis B Screening 1980 Regular Well Visit/Exam 18-64 1980 Zoster Vaccine (1 of 2) 2012 Covid-19 Vaccine ( season) 2024 11/21/2021, 12/28/2020, 06/24/2020, Additional history exists Influenza Vaccine (#1) 2024 2, 12/13/2020, 11/28/2019, Additional history exists DTaP/Tdap/Td Vaccine (2 - Td or Tdap) 12/13/2030 12/13/2020 Pneumococcal vaccine <65 Aged Out No longer eligible based on patient's age to complete this topic Insurance [facility] HMO [facility] O Care Teams Hammer Smith Relationship Specialty Start Date End Date Monique Chatterjee DO PCP - General Family Medicine 10/30/22 Nisha Palomares OD [address] [place] [address] Referring Physician Optometry 10/30/22 Edvin Dao MD [address] [address] Referring Physician Ophthalmology 10/30/22 Mark Clement MD [address] [place] [address] Consulting Physician Retina Ophthalmology 10/30/22
== END 2024-12-24 07:47 | disposition home or self-care (01) ==
LOC: ANHIMG 07:49
PROVIDERS: PCP Family Medicine; Visit Provider Family Medicine
DX: Z12.31 Encounter for screening mammogram for malignant neoplasm of breast (principal)
CPT/HCPCS: 77063; 77067